=== PATIENT | female | born 1950 | race Caucasian/White ===

== ENCOUNTER → 2021-04-30 | Outpatient (CLI) | payer OTHER | LOC: SJCVC 15:26 | PROVIDERS: ATTEND Nuclear Medicine Nuclear Cardiology | DX: I77.9 Disorder of arteries and arterioles, unspecified (principal); I48.91 Unspecified atrial fibrillation; I10 Essential (primary) hypertension; I82.409 Acute embolism and thrombosis of unspecified deep veins of unspecified lower extremity; E78.00 Pure hypercholesterolemia, unspecified; E78.5 Hyperlipidemia, unspecified; R73.03 Prediabetes; E03.9 Hypothyroidism, unspecified; Z88.0 Allergy status to penicillin; Z88.8 Allergy status to other drugs, medicaments and biological substances; Z88.2 Allergy status to sulfonamides; Z79.899 Other long term (current) drug therapy; Z87.891 Personal history of nicotine dependence ==

== ENCOUNTER → 2021-05-08 | Outpatient (CLI) | payer OTHER ==
[~2021-05-08] VITALS: Ht 154.9 cm; Wt 96.6 kg
[~2021-05-08] MED LIST: ASA81BEC; CYMBALTA30 MG; HYDROCODON-ACE1 EA11; LOSARTAN-HCTZ1 EAC1; PROAIR HFA8.5 GM; RAYOS5 MG; REQUIP 1 MG TABL1 M1; SUPER THERAVIT1 EACH; SYNTHROID88 MC1; TOPROL XL50 MG; VITAMIN D21250 MCG; XANAX 0.25 MG0.25 MG; XARELTO20 MG; ZOCOR 20 MG TAB20 M1
[2021-05-08 08:10] VITALS: BP 170/112
[2021-05-08 08:38] LABS: HEMATOCRIT 36.5 % (37.0-47.0); HEMOGLOBIN 12.3 gm/dL (12.0-15.0); MCH 29.4 pg (26.0-34.0); MCHC 33.6 g/dL (28.0-37.0); MCV 87.7 fL (80.0-100.0); RBC 4.17 mil/uL (4.20-5.00); RDW 14.7 % (10.5-14.5); WBC 11.7 thou/uL (4.0-11.0)
[2021-05-08 08:50] LABS: CALCIUM 9.6 mg/dL (8.5-10.1); CREATININE 0.8 mg/dL (0.6-1.0); POTASSIUM 3.5 mmol/L (3.5-5.1)
--- NOTE | 2021-05-08 10:08 | EKG ---
[place] [address] [address] [facility] [place] [address] ELECTROCARDIOGRAM REPORT Name: JARED KUO Room #: [facility]#: [id number] Admission: 05/08/21 Attend Phys: Edwin Soto MD Discharge: Date of : 52 Report #: [id number] [facility] Test Date: 2021-05-08 Test Time: 09:09:03 Pat Name: JARED KUO Department: Room: Gender: F Director Of National Sales: [facility] : 1950 Requested By: Edwin Soto Order Number: [id number] : Nils Nrei Measurements Intervals Mustang Rate: 142 P: LA: QRS: 29 QRSD: 89 T: 42 QT: 330 QTc: 507 Interpretive Statements Atrial flutter with predominant 2:[address] depression, probably rate related Prolonged QT interval No previous ECG available for comparison Electronically Signed On 05-08-2021 10:08:04 EMERGENCY MANAGEMENT DIRECTOR by Nils Neri [email or web address] <ELECTRONICALLY SIGNED> By: Nils Neri MD, [facility] 05/08/21 1008 [id number] 8 Nils Neri MD, FACC /EPI
--- NOTE | 2021-05-08 13:48 | NUR ---
PT BACK FROM LAB AND REMAINED IN AFIB. GEORGIE DRIP AT 10 AN HOUR. 1324 PT PAUSED AND CONVERTED TO NSR IN THE 60'S. DR RUSSELL NOTIFIED AND CANCELED HER ADMISSION. 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
[2021-05-08 13:53] LABS: URINE BILIRUBIN NEGATIVE (Negative); URINE BLOOD 3+ (Negative); URINE CLARITY CLEAR; URINE COLOR YELLOW; URINE GLUCOSE-RANDOM* NEGATIVE (Negative); URINE KETONES NEGATIVE (Negative); URINE LEUKOCYTES-REFLEX NEGATIVE (Negative); URINE NITRITE-REFLEX NEGATIVE (Negative); URINE PROTEIN (DIPSTICK) TRACE (Negative); URINE UROBILINOGEN 0.2 E.U./dl (0.2-1.0)
[2021-05-08 14:07] LABS: CASTS None Seen /LPF (None Seen); SQUAMOUS 0-3 Few /LPF (0-3); URINE RBC 3-10 Few /HPF (NONE SEEN); URINE WBC-REFLEX 0-5 Rare /HPF (0-5)
[2021-05-08 14:08] LABS: BACTERIA-REFLEX 1-9 Few /HPF (None Seen); CRYSTALS None Seen /LPF (None Seen)
== END | disposition home or self-care (01) ==
LOC: CATH 07:40
PROVIDERS: Surgery Vascular Surgery; ATTEND Nuclear Medicine Nuclear Cardiology
DX: I65.21 Occlusion and stenosis of right carotid artery (principal); I77.4 Celiac artery compression syndrome; I73.89 Other specified peripheral vascular diseases; I70.1 Atherosclerosis of renal artery; M79.604 Pain in right leg; M79.605 Pain in left leg; I10 Essential (primary) hypertension; E78.00 Pure hypercholesterolemia, unspecified; I48.91 Unspecified atrial fibrillation; E03.9 Hypothyroidism, unspecified; J44.9 Chronic obstructive pulmonary disease, unspecified; K21.9 Gastro-esophageal reflux disease without esophagitis; M06.9 Rheumatoid arthritis, unspecified; Z98.890 Other specified postprocedural states; Z79.899 Other long term (current) drug therapy; Z20.822 Contact with and (suspected) exposure to COVID-19; Z87.891 Personal history of nicotine dependence; Z88.0 Allergy status to penicillin; Z88.2 Allergy status to sulfonamides; Z79.01 Long term (current) use of anticoagulants

== ENCOUNTER → 2021-06-04 | Outpatient (CLI) | payer OTHER ==
[~2021-06-04] MED LIST changes: -ASA81BEC; +ASA81BEC PO; -CYMBALTA30 MG; +CYMBALTA30 MG PO; -HYDROCODON-ACE1 EA11; +HYDROCODON-ACE1 EA11 PO; -LOSARTAN-HCTZ1 EAC1; +LOSARTAN-HCTZ1 EAC1 PO; +METAMUCIL0.4 GM PO; +PLAVIX 75 MG TA75 MG PO; +PRESERVISION A1 EAC2 PO; -PROAIR HFA8.5 GM; +PROAIR HFA8.5 GM INH; -RAYOS5 MG; +RAYOS5 MG PO; -REQUIP 1 MG TABL1 M1; +REQUIP 1 MG TABL1 M1 PO; -SYNTHROID88 MC1; +SYNTHROID88 MC1 PO; -TOPROL XL50 MG; +TOPROL XL50 MG PO; +VITAMIN D3125 MC2 PO; -XANAX 0.25 MG0.25 MG; +XANAX 0.25 MG0.25 MG PO; -XARELTO20 MG; +XARELTO20 MG PO; -ZOCOR 20 MG TAB20 M1; +ZOCOR 20 MG TAB20 M1 PO
[2021-06-04 11:47] LABS: URINE BILIRUBIN NEGATIVE (Negative); URINE BLOOD TRACE (Negative); URINE CLARITY CLEAR; URINE COLOR YELLOW; URINE GLUCOSE-RANDOM* NEGATIVE (Negative); URINE KETONES NEGATIVE (Negative); URINE LEUKOCYTES-REFLEX TRACE (Negative); URINE NITRITE-REFLEX NEGATIVE (Negative); URINE PROTEIN (DIPSTICK) NEGATIVE (Negative); URINE UROBILINOGEN 0.2 E.U./dl (0.2-1.0)
[2021-06-04 11:48] LABS: ABSOLUTE NEUTROPHILS 9.5 thou/uL (1.4-8.2); BASOPHILS 0.3 % (0.0-2.0); EOSINOPHILS 0.4 % (0.0-3.0); HEMATOCRIT 34.9 % (37.0-47.0); HEMOGLOBIN 11.5 gm/dL (12.0-15.0); LYMPHOCYTES 8.5 % (24.0-44.0); MCH 28.8 pg (26.0-34.0); MCHC 32.9 g/dL (28.0-37.0); MCV 87.7 fL (80.0-100.0); MONOCYTES 6.2 % (1.0-8.0); PLATELET COUNT 333 thou/uL (150-400); POLYS 84.6 % (36.0-66.0); RBC 3.97 mil/uL (4.20-5.00); RDW 14.8 % (10.5-14.5); WBC 11.3 thou/uL (4.0-11.0)
[2021-06-04 12:00] LABS: ALBUMIN 3.8 g/dL (3.4-5.0); CALCIUM 9.1 mg/dL (8.5-10.1); CREATININE 0.7 mg/dL (0.6-1.0); POTASSIUM 3.9 mmol/L (3.5-5.1); TOTAL BILIRUBIN 0.4 mg/dL (0.2-1.0); TOTAL PROTEIN 7.1 g/dL (6.4-8.2)
[2021-06-04 13:25] LABS: APTT 40.6 Seconds (24.5-32.8); INR 1.15; PROTIME 12.5 Seconds (10.5-12.1)
== END ==
LOC: LAB 05-31 11:16 → PAC 05-31 11:26
PROVIDERS: ATTEND Surgery Vascular Surgery
DX: I65.21 Occlusion and stenosis of right carotid artery (principal); I77.9 Disorder of arteries and arterioles, unspecified; I10 Essential (primary) hypertension

== ENCOUNTER 2021-06-08 08:12 | Inpatient (IN) | payer OTHER ==
[~2021-06-08] VITALS: Ht 154.9 cm; Wt 99.8 kg
[2021-06-08] VITALS (9 sets, daily range): BP systolic 107–181; BP diastolic 32–60
--- NOTE | 2021-06-08 15:46 | NUR ---
PATIENT IN ICU FROM PACU AT 1510, DROWSY BUT AROUSABLE. DENIES PAIN AND VITALS STABLE. CARDENE FOR BP CONTROL. ADITYA R. RADIAL WITH APPROPRIATE WAVEFORM. DRESSING ON RT. GROIN AND RT. NECK. SCDs ON BLE. PATIENT'S DAUGHTER AT THE BEDSIDE AND HAS PRIVACY CODE AND ICU GUIDELINES PROVIDED.
[2021-06-09] VITALS (12 sets, daily range): BP systolic 116–154; BP diastolic 39–56
--- NOTE | 2021-06-09 06:00 | NUR ---
PT AWAKE AND ALERT. A VERY DELIGHTFUL LITTLE LADY. SLEPT AT INTERVALS TONIGHT. RIGHT NECK AND GROIN DRESSINGS DRY AND INTACT. HAD PERIODS OF RESTLESS LEG SYNDROME TONIGHT. SINUS RHYTHM. LUNGS CLEAR AND DIMINISHED. UO ADEQ. PROGRESSING TOWARD GOALS. ANXIOUS TO HOME HOME.
[2021-06-09 06:04] LABS: HEMATOCRIT 27.7 % (37.0-47.0); HEMOGLOBIN 9.1 gm/dL (12.0-15.0); MCH 29.1 pg (26.0-34.0); MCHC 32.7 g/dL (28.0-37.0); MCV 88.9 fL (80.0-100.0); RBC 3.12 mil/uL (4.20-5.00); RDW 15.2 % (10.5-14.5); WBC 11.2 thou/uL (4.0-11.0)
[2021-06-09 06:47] LABS: CALCIUM 8.1 mg/dL (8.5-10.1); CREATININE 0.9 mg/dL (0.6-1.0); POTASSIUM 4.6 mmol/L (3.5-5.1)
--- NOTE | 2021-06-09 16:40 | NUR ---
PT TRANSFERRED VIA WHEELCHAIR. ALL BELONGINGS WITH PT.
--- NOTE | 2021-06-09 18:24 | NUR ---
PT TRANSFERRED FROM ICU TO ROOM, TO ROOM 210. VITALS AND QUICK ASSESSMENT COMPLETED. RIGHT GROIN AND CAROTID DRESSING IN PLACE, CLEAN, DRY AND INTACT. SOFT SOFT AND FREE OF HEMATOMA. NORCO GIVEN FOR HEAD PAIN. PT GOT SETTLE INTO NEW ROOM. FALL PRECAUTIONS IN PLACE. DAUGHTER IN ROOM VISITING.
[2021-06-10 00:40] VITALS: BP 153/50
--- NOTE | 2021-06-10 03:32 | NUR ---
Assumed pt care at 1900. Upon initial arrival to room, pt is sleeping. Pt is arousable. No sign of distress noted in pt. Verbalizes a headache. Vital signs stable. Assessment completed and documented. Scheduled meds administered. Pt ambulates well to the bedside commmode. No acute event during the night. Continue to monitor. No further needs at this time.
[2021-06-10 04:45] VITALS: BP 155/45
[2021-06-10 09:03] VITALS: BP 155/45
[2021-06-10 09:19] VITALS: BP 136/57
--- NOTE | 2021-06-13 12:37 | O ---
[facility] [place] [address] OPERATIVE REPORT Name: JARED KUO Room #: [facility] IN M.R.#: [id number] Admission: 06/08/21 Attend Phys: Israel Mcguire MD Discharge: 06/10/21 Date of : 52 Report #: [id number] THIS REPORT FOR: cc: NO FAMILY PHYSICIAN or PCP NO FAMILY PHYSICIAN or PCP Israel Mcguire MD ~ DATE OF SERVICE: 06/08/2021 PREOPERATIVE DIAGNOSIS: Right carotid artery stenosis. POSTOPERATIVE DIAGNOSIS: Right carotid artery stenosis. OPERATION: Transcarotid arterial revascularization, right. SURGEONS: Dr. Israel Mcguire and Dr. Edwin Soto. [employer] PE TEACHER: Branden Degroot. ANESTHESIA: General. INDICATION: The patient is a 71-year-old with high-grade carotid artery stenosis. There is a 90% lesion over 2.8 cm in the right internal carotid with some evidence of fibromuscular dysplasia distally. The left side has trivial disease. FINDINGS AND TECHNIQUE: After general anesthesia was established, a low collar incision was made in the right neck. The heads of the sternocleidomastoid muscle were divided to expose the common carotid. The common carotid was exposed and controlled and a 5-0 Prolene pursestring was placed in it. Separately, the left femoral vein was entered with an arterial needle followed by guidewire and catheter. A long guidewire was placed so that the venous component of the [place] [address] TCAR AV shunt could be placed and secured. 10,000 units of heparin were given and the carotid artery was entered with the arterial needle followed by guidewire and catheter and then a stiff wire was used so that the arterial end of the TCAR AV fistula could be placed and secured. When the ACT was satisfactory, an arteriogram was taken. A guidewire was passed into the internal carotid and then predilatation angioplasty was done with a 4 x 30 Cordis balloon. [facility] [address] [place] [address] OPERATIVE REPORT Name: JARED KUO Room #: 210-P [facility] IN .R.#: [id number] Admission: 06/08/21 Attend Phys: Israel Mcguire MD Discharge: 06/10/21 Date of : 52 Report #: [id number] Arteriogram was done to confirm position and the iCIMS 9 x 40 stent was placed across the lesion. Post-balloon dilatation was then done with a 5.5 x 30 Cordis balloon. The requisite 2 minutes were allowed to elapse and then an arteriogram was taken. This showed some evidence of folding related to the fibromuscular dysplasia distally and a 4 x 30 Cordis balloon was used for angioplasty at this location. Another arteriogram was taken that showed good resolution and satisfactory flow and stent position. At this point, the antegrade flow was reestablished. The shunt was dismantled. The arterial end was removed and the pursestring was tied tightly and additional 6-0 Prolene was placed at the arterial entry site. The venous end of the fistula was removed and pressure was applied. 50 mg of protamine was given to reverse the heparin. When hemostasis was satisfactory, the neck wound was closed in layers. The patient was taken to the recovery room in satisfactory condition where the neurologic progress was monitored. All counts were reported as correct. <ELECTRONICALLY SIGNED> By: Israel Mcguire MD 06/13/21 [id number] Israel Mcguire MD /nt
== END 2021-06-10 10:38 | disposition home or self-care (01) | DRG 35 ==
LOC: TBA 08:12 → PRE 11:10 → ICU 15:43 → 2N 06-09 17:10
PROVIDERS: ADMIT Surgery Vascular Surgery; ATTEND Surgery Vascular Surgery
PROC: 037K3DZ Dilation of Right Internal Carotid Artery with Intraluminal Device, Percutaneous Approach (ICD-10-PCS; principal; 2021-06-08)
PROC: B3161ZZ Fluoroscopy of Right Internal Carotid Artery using Low Osmolar Contrast (ICD-10-PCS; principal; 2021-06-08)
DX: I65.21 Occlusion and stenosis of right carotid artery (principal); D68.69 Other thrombophilia; E87.1 Hypo-osmolality and hyponatremia; I48.0 Paroxysmal atrial fibrillation; I10 Essential (primary) hypertension; R73.03 Prediabetes; E78.00 Pure hypercholesterolemia, unspecified; E03.9 Hypothyroidism, unspecified; G25.81 Restless legs syndrome; M06.9 Rheumatoid arthritis, unspecified; H35.30 Unspecified macular degeneration; F32.A Depression, unspecified; F41.9 Anxiety disorder, unspecified; M48.00 Spinal stenosis, site unspecified; K44.9 Diaphragmatic hernia without obstruction or gangrene; J44.9 Chronic obstructive pulmonary disease, unspecified; Z20.822 Contact with and (suspected) exposure to COVID-19; Z79.01 Long term (current) use of anticoagulants; Z28.21 Immunization not carried out because of patient refusal; Z86.718 Personal history of other venous thrombosis and embolism; Z88.1 Allergy status to other antibiotic agents; Z88.0 Allergy status to penicillin; Z88.2 Allergy status to sulfonamides; Z98.42 Cataract extraction status, left eye; Z98.41 Cataract extraction status, right eye
CPT/HCPCS: 10078; 47375; 48889; 50010; 50386; 50403; 50455; 51301; 52287; 54118; 56524; 56526; 56528; 56531; 65020; 65040; 70005